=== PATIENT | male | born 1995 | race Two or more races ===

== ENCOUNTER 2021-04-21 05:06 | Emergency (ER) | payer OTHER ==
[~2021-04-21] VITALS: Ht 172.7 cm; Wt 77.0 kg
[2021-04-21] MEDS ORDERED: ACETAMINOPHEN 325MG TABLET PO ONE (05:45)
[2021-04-21] MEDS ORDERED: IBUPROFEN 400MG TABLET PO ONE (05:45)
[2021-04-21] MEDS ORDERED: ACET-2708 MT (05:57)
[2021-04-21] MEDS ORDERED: CEPH500C2 MT (05:57)
[2021-04-21] MEDS ORDERED: GENT5DRO5 RIGHTEYE (05:57)
[2021-04-21] MEDS ORDERED: SULF1TAB48 MT (05:57)
[2021-04-21] MEDS ORDERED: IBUP-2028 MT (05:57)
[2021-04-21] MEDS ORDERED: ERYT1OIN6 RIGHTEYE (06:02)
[2021-04-21] MEDS ORDERED: CEFTRIAXONE SODIUM 500 MG/VIAL IM ONE (06:15)
[2021-04-21 06:59] VITALS: BP 126/76
== END 2021-04-21 07:03 | disposition home or self-care (01) ==
LOC: ER 05:06
DX: H10.021 Other mucopurulent conjunctivitis, right eye (principal); L03.213 Periorbital cellulitis; Z20.2 Contact with and (suspected) exposure to infections with a predominantly sexual mode of transmission; R03.0 Elevated blood-pressure reading, without diagnosis of hypertension
CPT/HCPCS: 87591; 96372; 99283; J0696